=== PATIENT | female | born 1975 | race Caucasian/White ===

== ENCOUNTER → 2024-12-22 | Day surgery (SDC) | payer MEDICARE, OTHER ==
[2024-12-14 12:10] LABS: EST GLOMERULAR FILTRATION RATE 85.0 ML/MIN (>=60)
[~2024-12-22] MED LIST: ACETAMINOPHEN 1000 MG/100 ML 100 ML IV ONE; BUPIVACAINE LIPOSOME/PF 266 MG/20 ML IJ ONE; CEFAZOLIN SODIUM 2 GM ONE; ESMOLOL HCL 100MG/10ML 10 MG/ML VIAL ONE; FENTANYL CITRATE/PF 100MCG/2 ML INJ ONE; HYDROCHLOROTHIA25 MG PO; KEPPRA500 MG PO; LACTATED RINGER'S 1,000 ML ONE; METFORMIN HCL500 MG PO; MYRBETRIQ25 MG PO; POTASSIUM CITR10 MEQ PO; PROPOFOL IV EMULSION 10 MG/ML 20 ML VIAL ONE; QULIPTA60 MG PO; ROCURONIUM BROMIDE 1 ML IV ONE; SUCCINYLCHOLINE CHLORIDE 20 MG/ML 10ML VIAL ONE; SUGAMMADEX SODIUM 200 MG/2 ML VIAL IV ONE; TRAZODONE HCL300 MG PO; UBRELVY100 MG PO; ZEPBOUND2.5 MG/0.5 SC
[2024-12-22 14:33] VITALS: BP 120/85; PULSE 74; RESP 18; O2SAT 98
== END | disposition home or self-care (01) ==
LOC: OR 09:19
PROVIDERS: ATTEND Orthopaedic Surgery Sports Medicine
DX: M75.112 Incomplete rotator cuff tear or rupture of left shoulder, not specified as traumatic (principal); S43.432A Superior glenoid labrum lesion of left shoulder, initial encounter; M75.32 Calcific tendinitis of left shoulder; M75.42 Impingement syndrome of left shoulder; J45.909 Unspecified asthma, uncomplicated; E11.9 Type 2 diabetes mellitus without complications; E66.9 Obesity, unspecified; G40.909 Epilepsy, unspecified, not intractable, without status epilepticus; G43.909 Migraine, unspecified, not intractable, without status migrainosus; M54.2 Cervicalgia; M54.9 Dorsalgia, unspecified; N20.0 Calculus of kidney; F41.9 Anxiety disorder, unspecified; F32.A Depression, unspecified; X58.XXXA Exposure to other specified factors, initial encounter; Z01.810 Encounter for preprocedural cardiovascular examination; Z01.812 Encounter for preprocedural laboratory examination; Z79.85 Long-term (current) use of injectable non-insulin antidiabetic drugs; Z79.84 Long term (current) use of oral hypoglycemic drugs; Z79.899 Other long term (current) drug therapy; Z86.73 Personal history of transient ischemic attack (TIA), and cerebral infarction without residual deficits
CPT/HCPCS: 23430; 29826; 29827; 36415 ×2; 80048; 81025; 82948; 93005; C1713 ×3; C1763; J0131; J0330; J0666; J2704; J3590; J7121